=== PATIENT | female | born 2005 | race African-American/Black ===

== ENCOUNTER 2024-09-22 00:47 | Emergency (ER) | payer OTHER ==
[~2024-09-22] VITALS: Ht 167.6 cm; Wt 74.0 kg
--- NOTE | 2024-09-22 03:15 | ED.PDOC ---
Psychiatric HPI Comments A 19 year old female presents to the ED with a chief complaint of hallucinations onset yesterday. Patient states she has been hearing voices as well as experiencing suicidal ideation. Patient has a past medical history of Schizophrenia, is on medication, does not see a Psychiatrist, gets her medication from [facility] in [place]. Patient states her mother dropped her off at ED due to her symptoms. No other symptoms or modifying factors present at this time. Chief Complaint: Hallucinations Time Seen by MD: 03:07 Mode of Arrival: Ambulatory Timing: Hours Duration: Since onset Prehospital treatment: None Presents with: Suicidal Ideation, Other (Hallucinations) History of: Schizophrenia Quality: Hallucinations Associated signs and symptoms: Hallucinations Past Medical History PAST MEDICAL HISTORY: Schizophrenia Surgical History: Denies all surgeries ASSURANCE SENIOR History: No Pertinent ASSURANCE SENIOR History Family History Family History: Reviewed,noncontributory to illness, No family hx of Cancer, No family hx of DM, No family hx of Heart brayden, No family hx of HTN, No family hx ofKidney brayden, No family hx of Liver brayden, No family hx of Lung brayden, No family hx of Stroke Social History Smoker: Non-Smoker Alcohol: Denies ETOH Use Drugs: Denies Drug Use Lives In: Home Constitutional: denies: chills, diaphoresis, fatigue, fever, malaise, sweats, weakness, others EENTM: denies: blurred vision, double vision, ear bleeding, ear discharge, ear drainage, ear pain, ear ringing, eye pain, eye redness, hearing loss, mouth pain, mouth swelling, nasal discharge, nose bleeding, nose congestion, nose pain, photophobia, tearing, throat pain, throat swelling, voice changes, others Respiratory: denies: cough, hemoptysis, orthopnea, SOB at rest, shortness of breath, SOB with excertion, stridor, wheezing, others Cardiovascular: denies: chest pain, dizzy spells, diaphoresis, Dyspnea on exertion, edema, irregular heart beat, left arm pain, lightheadedness, palpitations, PND, syncope, others Gastrointestinal: denies: abdomen distended, abdominal pain, blood streaked bowels, constipated, diarrhea, dysphagia, difficulty swallowing, hematemesis, melena, nausea, poor appetite, poor fluid intake, rectal bleeding, rectal pain, vomiting, others Genitourinary: denies: abnormal vagina bleeding, burning, dyspareunia, dysuria, flank pain, frequency, hematuria, incontinence, pain, , vagina discharge, urgency, others Neurological: denies: dizziness, fainting, headache, left sided numbness, left sided weakness, numbness, paresthesia, pre-existing deficit, right sided numbness, right sided weakness, seizure, speech problems, tingling, tremors, weakness, others Musculoskeletal: denies: back pain, gout, joint pain, joint swelling, muscle pain, muscle stiffness, neck pain, others Integumetry: denies: bruises, change in color, change in hair/nails, dryness, laceration, lesions, lumps, rash, wounds, others Allergic/Immunocompromised: denies: Difficulty Healing, Frequent Infections, Hives, Itching, others Hematologic/Lymphatic: denies: anemia, blood clots, easy bleeding, easy bruising, swollen glands, others Endocrine: denies: excessive hunger, excessive sweating, excessive thirst, excessive urination, flushing, intolerance to cold, intolerance to heat, unexplained weight gain, unexplained weight loss, others Psychiatric: reports: schizophrenia, suicidal; denies: anxiety, bipolar disorder, depression, hopeless, panic disorder, sleepless, others All Other Systems: Reviewed and Negative Physical Exam General Appearance: Cachectic, Normal HEENT: Normal ENT Inspection, Pharynx Normal, TMs Normal Neck: Full Range of Motion, Non-Tender, Normal, Normal Inspection Respiratory: Chest Non-Tender, Lungs Clear, No Accessory Muscle Use, No Respiratory Distress, Normal Breath Sounds Cardiovascular: No Edema, No JVD, No Murmur, No Gallop, Normal Peripheral Pulses, Regular Rate/Rhythm Breast Exam: Deferred Gastrointestinal: No Organomegaly, Non Tender, No Pulsatile Mass, Normal Bowel Sounds, Soft Genitalia: Deferred Pelvic: Deferred Rectal: Deferred Extremities: No calf tenderness, Normal capillary refill, Normal inspection, Normal range of motion, Non-tender, No pedal edema Musculoskeletal : Apperance: Normal Neurologic: Alert, music internship II-XII nml as Tested, No Motor Deficits, Normal Affect, Normal Mood, No Sensory Deficits Cerebellar Function: Normal Reflexes: Normal Skin: Dry, Normal Color, Warm Lymphatic: No Adenopathy Was a procedure done? Was a procedure done?: No Psych Differential Dx Psych. Differential Dx: Anxiety, Bipolar Disorder, Depression, Schizoprenia, Suicidal Suicidal Differential Dx: Anxiety, Depression, Schizoprenia X-Ray, Labs, Meds, VS Vital Signs Date Time Temp Pulse Resp B/P (MAP) Pulse Ox O2 Delivery O2 Flow Rate FiO2 09/22/24 01:07 98.4 89 20 120/69 (86) 97 Lab Test 09/22/24 03:07 09/22/24 01:08 Range/Units White Blood Count 5.6 4.4-10.8 10^3/uL Red Blood Count 4.50 4.0-5.20 10^6/uL Hemoglobin 13.5 12.2-16.2 g/dL Hematocrit 39.9 36.0-46.0 % Mean Corpuscular Volume 88.7 80.0-100.0 fL Mean Corpuscular Hemoglobin 30.0 28.0-32.0 pg Mean Corpuscular Hemoglobin Concent 33.8 32.0-36.0 g/dL Red Cell Distribution Width 13.4 11.8-14.3 % Platelet Count 308 140-450 10^3/uL Mean Platelet Volume 7.5 6.9-10.8 fL Neutrophils (%) (Auto) 57.3 37.0-80.0 % Lymphocytes (%) (Auto) 34.2 10.0-50.0 % Monocytes (%) (Auto) 7.2 0.0-12.0 % Eosinophils (%) (Auto) 0.4 0.0-7.0 % Basophils (%) (Auto) 0.9 0.0-2.0 % Neutrophils # (Auto) 3.2 1.6-8.6 10 ^3/uL Lymphocytes # (Auto) 1.9 0.4-5.4 10 ^3/uL Monocytes # (Auto) 0.4 0-1.3 10 ^3/uL Eosinophils # (Auto) 0 0-0.8 10 ^3/uL Basophils # (Auto) 0 0-0.2 10 ^3/uL Nucleated Red Blood Cells 0.1 % Sodium Level 142 136-145 mmol/L Potassium Level 3.9 3.5-5.1 mmol/L Chloride Level 107 98-107 mmol/L Carbon Dioxide Level 26 20-31 mmol/L Anion Gap 9 5-15 Blood Urea Nitrogen 13 9-23 mg/dL Creatinine 0.87 0.550-1.02 mg/dL Glomerular Filtration Rate Calc 98 >90 mL/min BUN/Creatinine Ratio 14.9 10.0-20.0 Serum Glucose 106 74-106 mg/dL Calcium Level 10.4 8.7-10.4 mg/dL Total Bilirubin 0.3 0.2-1.0 mg/dL Aspartate Amino Transferase (AST) 13 13-40 U/L Alanine Aminotransferase (ALT) 17 7-40 U/L Alkaline Phosphatase 64 46-116 U/L Total Protein 8.1 5.7-8.2 g/dL Albumin 5.1 H 3.2-4.8 g/dL Salicylates Level < 3.0 -30 mg/dL Acetaminophen Level < 2.0 L 10.0-20.0 UG/ML Plasma/Serum Blood Alcohol < 3.0 <10 mg/dL Urine Color Yellow Yellow Urine Clarity Turbid H Clear Urine pH 6.0 5.0-9.0 Urine Specific [place] 1.032 1.001-1.035 Urine Protein Trace H Negative Urine Ketones Trace Negative Urine Blood Negative Negative /uL Urine Nitrite Negative Negative Urine Bilirubin Negative Negative Urine Urobilinogen 3 H Negative mg/dL Urine Leukocyte Esterase Negative Negative /uL Urine RBC 4 0 - 4 /hpf Urine WBC 3 0 - 5 /hpf Urine Squamous Epithelial Cells Mod <5 /hpf Urine Bacteria None seen None Seen /hpf Urine Mucus Few None Seen Urine Glucose Normal Normal mg/dL Urine Opiates Screen Neg NEGATIVE Urine Fentanyl Screen Neg NEGATIVE Urine Barbiturates Screen Neg NEGATIVE Urine Phencyclidine Screen Neg NEGATIVE Urine Amphetamines Screen Neg NEGATIVE Urine Benzodiazepines Screen Neg NEGATIVE Urine Cocaine Screen Neg NEGATIVE Urine Cannabinoids Screen Neg NEGATIVE CBC and CMP were normal. Salicylate and acetaminophen levels are normal. Drug screen and alcohol levels are negative. Psychiatric tele consult has been ordered. Time of 1ST Reevaluation: 03:37 Reevaluation 1ST: Unchanged Patient Education/Counseling: Diagnosis, Treatment, Prognosis Family Education/Counseling: No Family Present Departure 1 Departure Time of Disposition: 04:57 Impression: Primary Impression: Suicide ideation Additional Impression: Depression Qualified Codes: F33.2 - Major depressive disorder, recurrent severe without psychotic features Disposition: 30 STILL A PATIENT Condition: Guarded Critical Care Note Critical Care Time?: No Stability Stability form required: No I personally scribed for SERG CHAPMAN MD ([email or web address]) on 09/22/24 at 03:15. Electronically submitted by Rox James ([email or web address]). SERG CHAPMAN MD Sep 22, 2024 03:15
[2024-09-22 03:23] LABS: Basophils # (auto) 0 10 ^3/uL (0-0.2); Basophils % (auto) 0.9 % (0.0-2.0); Eosinophils # (auto) 0 10 ^3/uL (0-0.8); Eosinophils % (auto) 0.4 % (0.0-7.0); Hematocrit 39.9 % (36.0-46.0); Hemoglobin 13.5 g/dL (12.2-16.2); Lymphocytes # (auto) 1.9 10 ^3/uL (0.4-5.4); Lymphocytes % (auto) 34.2 % (10.0-50.0); Mean Corpuscular Hgb Conc. 33.8 g/dL (32.0-36.0); Mean Corpuscular Volume 88.7 fL (80.0-100.0); Monocytes # (auto) 0.4 10 ^3/uL (0-1.3); Monocytes % (auto) 7.2 % (0.0-12.0); Neutrophils # (auto) 3.2 10 ^3/uL (1.6-8.6); Neutrophils % (auto) 57.3 % (37.0-80.0); Nucleated Red Blood Cells % 0.1 %; Platelet Count (auto) 308 10^3/uL (140-450); Red Cell Distribution Width 13.4 % (11.8-14.3); White Blood Cell 5.6 10^3/uL (4.4-10.8)
[2024-09-22 03:31] LABS: Urine Bacteria None Seen /hpf (None Seen)
[2024-09-22 03:41] LABS: Alanine Aminotransferase 17 U/L (7-40); Albumin 5.1 g/dL (3.2-4.8); Alkaline Phosphatase 64 U/L (46-116); Anion Gap 9 (5-15); Aspartate Aminotransferase 13 U/L (13-40); BUN/Creatinine Ratio 14.9 (10.0-20.0); Bilirubin, Total 0.3 mg/dL (0.2-1.0); Blood Alcohol < 3.0 mg/dL (<10); Blood Urea Nitrogen 13 mg/dL (9-23); Calcium 10.4 mg/dL (8.7-10.4); Carbon Dioxide 26 mmol/L (20-31); Chloride 107 mmol/L (98-107); Glucose 106 mg/dL (74-106); Potassium 3.9 mmol/L (3.5-5.1); Sodium 142 mmol/L (136-145); Total Protein 8.1 g/dL (5.7-8.2)
[2024-09-22 03:42] LABS: Acetaminophen < 2.0 UG/ML (10.0-20.0)
[2024-09-22 03:49] LABS: Salicylate < 3.0 mg/dL (-30)
[2024-09-22 03:52] LABS: Amphetamine Screen, Urine Neg (NEGATIVE); Barbiturate Scree,Urine Neg (NEGATIVE); Benzodiazephine Screen, Urine Neg (NEGATIVE); Cocaine Screen, Urine Neg (NEGATIVE); Opiate Scree,Urine Neg (NEGATIVE); Phencyclidine Screen, Urine Neg (NEGATIVE)
[2024-09-22 03:53] LABS: Cannabinoid Screen, Urine Neg (NEGATIVE)
[2024-09-22 04:20] LABS: Urine Blood Negative /uL (Negative); Urine Clarity Turbid (Clear); Urine Color Yellow (Yellow); Urine Mucus FEW (None Seen); Urine Protein, UAD TRACE (Negative); Urine Specific Gravity 1.032 (1.001-1.035); Urine Squamous Epithelial Cell MOD /hpf (<5); Urine Urobilinogen 3 mg/dL (Negative); Urine WBC 3 /hpf (0 - 5)
--- NOTE | 2024-09-22 11:01 | DVHINCON2 ---
Date of Service if different f: Sep 22, 2024 Consultation ([facility]) Consulting Physician: RAJI ALLRED MD Labs Laboratory Tests Test 09/22/24 01:08 09/22/24 03:07 Urine Color Yellow (Yellow) Urine Clarity Turbid (Clear) Urine pH 6.0 (5.0-9.0) Urine Specific [place] 1.032 (1.001-1.035) Urine Protein Trace (Negative) Urine Ketones Trace (Negative) Urine Blood Negative /uL (Negative) Urine Nitrite Negative (Negative) Urine Bilirubin Negative (Negative) Urine Urobilinogen 3 mg/dL (Negative) Urine Leukocyte Esterase Negative /uL (Negative) Urine RBC 4 /hpf (0 - 4) Urine WBC 3 /hpf (0 - 5) Urine Squamous Epithelial Cells Mod /hpf (<5) Urine Bacteria None seen /hpf (None Seen) Urine Mucus Few (None Seen) Urine Glucose Normal mg/dL (Normal) Urine Opiates Screen Neg (NEGATIVE) Urine Fentanyl Screen Neg (NEGATIVE) Urine Barbiturates Screen Neg (NEGATIVE) Urine Phencyclidine Screen Neg (NEGATIVE) Urine Amphetamines Screen Neg (NEGATIVE) Urine Benzodiazepines Screen Neg (NEGATIVE) Urine Cocaine Screen Neg (NEGATIVE) Urine Cannabinoids Screen Neg (NEGATIVE) White Blood Count 5.6 10^3/uL (4.4-10.8) Red Blood Count 4.50 10^6/uL (4.0-5.20) Hemoglobin 13.5 g/dL (12.2-16.2) Hematocrit 39.9 % (36.0-46.0) Mean Corpuscular Volume 88.7 fL (80.0-100.0) Mean Corpuscular Hemoglobin 30.0 pg (28.0-32.0) Mean Corpuscular Hemoglobin Concent 33.8 g/dL (32.0-36.0) Red Cell Distribution Width 13.4 % (11.8-14.3) Platelet Count 308 10^3/uL (140-450) Mean Platelet Volume 7.5 fL (6.9-10.8) Neutrophils (%) (Auto) 57.3 % (37.0-80.0) Lymphocytes (%) (Auto) 34.2 % (10.0-50.0) Monocytes (%) (Auto) 7.2 % (0.0-12.0) Eosinophils (%) (Auto) 0.4 % (0.0-7.0) Basophils (%) (Auto) 0.9 % (0.0-2.0) Neutrophils # (Auto) 3.2 10 ^3/uL (1.6-8.6) Lymphocytes # (Auto) 1.9 10 ^3/uL (0.4-5.4) Monocytes # (Auto) 0.4 10 ^3/uL (0-1.3) Eosinophils # (Auto) 0 10 ^3/uL (0-0.8) Basophils # (Auto) 0 10 ^3/uL (0-0.2) Nucleated Red Blood Cells 0.1 % Sodium Level 142 mmol/L (136-145) Potassium Level 3.9 mmol/L (3.5-5.1) Chloride Level 107 mmol/L (98-107) Carbon Dioxide Level 26 mmol/L (20-31) Anion Gap 9 (5-15) Blood Urea Nitrogen 13 mg/dL (9-23) Creatinine 0.87 mg/dL (0.550-1.02) Glomerular Filtration Rate Calc 98 mL/min (>90) BUN/Creatinine Ratio 14.9 (10.0-20.0) Serum Glucose 106 mg/dL (74-106) Calcium Level 10.4 mg/dL (8.7-10.4) Total Bilirubin 0.3 mg/dL (0.2-1.0) Aspartate Amino Transf (AST/SGOT) 13 U/L (13-40) Alanine Aminotransferase (ALT/SGPT) 17 U/L (7-40) Alkaline Phosphatase 64 U/L (46-116) Total Protein 8.1 g/dL (5.7-8.2) Albumin 5.1 g/dL (3.2-4.8) Beta HCG, Quantitative 1.4 mIU/mL (1.5-4.2) Salicylates Level < 3.0 mg/dL (-30) Acetaminophen Level < 2.0 UG/ML (10.0-20.0) Plasma/Serum Blood Alcohol < 3.0 mg/dL (<10) Appetite: Fair Appearance: Stated age, Groomed Psychomotor activity: Agitated Behavioral: [place], Impulsive Eye contact: Limited Speech: WNL Affect: Irritable, Guarded Mood: Elevated, Irritable Thought processes: Linear/Goal-directed Thought content: Hallucinations (auditory) Suicidal ideations: Absent Homicidal ideations: Absent Orientation: Person, Place, Time, Situation Memory intact: Recent Intellect: Average Abstractability: WNL Concentration: Adequate Attention: Limited Judgement: Marginal Insight: Fair Vitals Vital Signs Date Time Temp Pulse Resp B/P (MAP) Pulse Ox O2 Delivery O2 Flow Rate FiO2 09/22/24 08:37 97.9 79 20 119/74 (89) 98 97.9 09/22/24 08:37 Room Air Treatment plan discussed: With staff Medication adjusted: Yes Diagnosis: hx of schizophrenia Plan : this is a 19-year-old female with hx of schizophrenia reporting increasing command hallucinations and paranoia, lacks a mental health provider Recommend 5150hold and transfer to psychiatric facility for stabilization and treatment d/c Abilify. Start Risperdal 1mg po qam, 2mg po qhs History of Present Illness Reason for Consult : hallucinations HPI : This is a 19-year-old female with hx of of schizophrenia presents to ED reporting hallucinations. Patient is evaluated via telepsychiatry. She reports visual hallucinations which are blurry and command auditory hallucinations which tell her to harm herself. She is hearing conversations of people. She repeats "I don't know" when asked to elaborate or provide more details. She becomes irritable, saying I'm tired of this. She is also holding her stomach saying " I might be " and reporting stomach pain. She believes people are after her and are responsible for this. She is having suicidal ideation but denies any plans. She denies homicidal ideations. She reports hallucination have been going on for a while and mom does not want her in the house and wants her to go get help. Mom dropped her off to ED. She sometimes has trouble sleeping. She denies feels depressed. She has normal appetite. She is sometimes smiling to self, preoccupied, appears to respond to unseen stimuli. Past Psychiatric History : She reports hx of schizophrenia and prescribed Abilify 25mg x1 year and reports compliance but it does not seem to work and hallucinations are worse. Discussed that there is not a 25mg tablet, maybe a 20mg and 5mg, but she denies. She does not have a psychiatrist or therapist. She received prescription from crisis center. She does have prior psych admissions, she could not provide further details. She denies past suicide attempts. Past Medical History : She denies Social History : She lives with mother. She does not have children. She is unemployed. She reports vaping nicotine only. Denies substance use. Her toxicolo gy is negative for substances. FANI DE LA VEGA DNP Sep 22, 2024 11:01
[2024-09-23] VITALS: RESP 14; O2SAT 96
[2024-09-23 19:30] VITALS: PULSE 97; RESP 19; O2SAT 97
[2024-09-24] MEDS: risperiDONE 1 MG TAB PO ONE (01:36)
[2024-09-24 06:42] VITALS: BP 103/65; RESP 12; TEMP 97.6; O2SAT 100
--- NOTE | 2024-09-24 06:57 | ED.PDOC ---
Departure 1 Departure Time of Disposition: 06:57 (Patient is resting comfortably. Patient accepted to [facility] Impression: Primary Impression: Suicide ideation Additional Impression: Depression Qualified Codes: F33.2 - Major depressive disorder, recurrent severe without psychotic features Dis[facility] Condition: Guarded LINA MOORE MD Sep 24, 2024 06:57
[2024-09-24] MEDS ORDERED: risperiDONE 1 MG TAB PO ONE (07:00)
== END 2024-09-22 07:37 ==
LOC: ER 00:47
DX: R45.851 Suicidal ideations (principal); R10.2 Pelvic and perineal pain; F20.9 Schizophrenia, unspecified; F17.290 Nicotine dependence, other tobacco product, uncomplicated; F32.A Depression, unspecified; Z79.899 Other long term (current) drug therapy; Z20.822 Contact with and (suspected) exposure to COVID-19; Z32.02 Encounter for pregnancy test, result negative
CPT/HCPCS: 36415; 80053; 80307; 80320; 80329; 81001; 81025; 84702; 85025

== ENCOUNTER 2024-12-13 01:41 | Emergency (ER) | payer OTHER ==
[~2024-12-13] VITALS: Ht 170.2 cm; Wt 68.4 kg
--- NOTE | 2024-12-13 02:03 | ED.PDOC ---
Psychiatric HPI Comments 19-year-old female who came to emergency room via EMS for mental health issues. Per EMS patient was picked up by the crisis center. Does have history of schizophrenia, anxiety and depression and has poor compliance to her medications. States she has been feeling suicidal recently, with has no plans to, and she has been having auditory hallucinations as well. Denies being homicidal. Chief Complaint: Mental Health Time Seen by MD: 02:02 Reviewed Notes: Meter And Service Line Inspector Notes Information Source: Patient, Emergency Med Personnel Mode of Arrival: EMS Severity: Unable to Care for Self, Unable to Control Self Severity of Pain: Moderate Severity of Mental Status: Moderate Severity of Symptoms: Moderate Timing: Days Duration: Intermittent Prehospital treatment: None Presents with: Depression, Anxiety, Unclear Thinking, Bizarre Behavior, Suicidal Ideation Circumstance: Causing a Disturbance Current substance abuse: None Stressors: Relationships History of: Depression, Anxiety, Schizophrenia, Suicidal Attempt Quality: Confusion, Hallucinations Associated signs and symptoms: Depression, Hopeless, Anxiety, Hallucinations, Confusion Past Medical History PAST MEDICAL HISTORY: Anxiety, Depression, Schizophrenia Past Medical History (Other): Suicide ideations Surgical History: Denies all surgeries COMPUTER FIELD TECHNICIAN History: No Pertinent COMPUTER FIELD TECHNICIAN History Family History Family History: Reviewed,noncontributory to illness, No family hx of Cancer, No family hx of DM, No family hx of Heart brayden, No family hx of HTN, No family hx ofKidney brayden, No family hx of Liver brayden, No family hx of Lung brayden, No family hx of Stroke Social History Smoker: Non-Smoker Alcohol: Denies ETOH Use Drugs: Denies Drug Use Lives In: Home Constitutional: denies: chills, diaphoresis, fatigue, fever, malaise, sweats, weakness, others EENTM: denies: blurred vision, double vision, ear bleeding, ear discharge, ear drainage, ear pain, ear ringing, eye pain, eye redness, hearing loss, mouth pain, mouth swelling, nasal discharge, nose bleeding, nose congestion, nose pain, photophobia, tearing, throat pain, throat swelling, voice changes, others Respiratory: denies: cough, hemoptysis, orthopnea, SOB at rest, shortness of breath, SOB with excertion, stridor, wheezing, others Gastrointestinal: denies: abdomen distended, abdominal pain, blood streaked bowels, constipated, diarrhea, dysphagia, difficulty swallowing, hematemesis, melena, nausea, poor appetite, poor fluid intake, rectal bleeding, rectal pain, vomiting, others Genitourinary: denies: abnormal vagina bleeding, burning, dyspareunia, dysuria, flank pain, frequency, hematuria, incontinence, pain, , vagina discharge, urgency, others Neurological: denies: dizziness, fainting, headache, left sided numbness, left sided weakness, numbness, paresthesia, pre-existing deficit, right sided numbness, right sided weakness, seizure, speech problems, tingling, tremors, weakness, others Musculoskeletal: denies: back pain, gout, joint pain, joint swelling, muscle pain, muscle stiffness, neck pain, others Integumetry: denies: bruises, change in color, change in hair/nails, dryness, laceration, lesions, lumps, rash, wounds, others Hematologic/Lymphatic: denies: anemia, blood clots, easy bleeding, easy bruising, swollen glands, others Endocrine: denies: excessive hunger, excessive sweating, excessive thirst, excessive urination, flushing, intolerance to cold, intolerance to heat, unexplained weight gain, unexplained weight loss, others Psychiatric: reports: anxiety, depression, schizophrenia, suicidal; denies: bipolar disorder, hopeless, panic disorder, sleepless, others Physical Exam General Appearance: No Apparent Distress, Normal HEENT: Normal ENT Inspection, Pharynx Normal, TMs Normal Neck: Full Range of Motion, Non-Tender, Normal, Normal Inspection Respiratory: Chest Non-Tender, Lungs Clear, No Accessory Muscle Use, No Respiratory Distress, Normal Breath Sounds Cardiovascular: No Edema, No JVD, No Murmur, No Gallop, Normal Peripheral Pulses, Regular Rate/Rhythm Breast Exam: Deferred Gastrointestinal: No Organomegaly, Non Tender, No Pulsatile Mass, Normal Bowel Sounds, Soft Genitalia: Deferred Pelvic: Deferred Rectal: Deferred Extremities: No calf tenderness, Normal capillary refill, Normal inspection, Normal range of motion, Non-tender, No pedal edema Musculoskeletal : Apperance: Normal Neurologic: Alert, play therapist II-XII nml as Tested, No Motor Deficits, Normal Affect, Normal Mood, No Sensory Deficits Cerebellar Function: Normal Reflexes: Normal Skin: Dry, Normal Color, Warm Lymphatic: No Adenopathy Was a procedure done? Was a procedure done?: No Psych Differential Dx Psych. Differential Dx: Anxiety, Bipolar Disorder, Depression, Schizoprenia, Suicidal OD Differential Dx: Hallucinations Suicidal Differential Dx: Anxiety, Depression, Schizoprenia X-Ray, Labs, Meds, VS Vital Signs Date Time Temp Pulse Resp B/P (MAP) Pulse Ox O2 Delivery O2 Flow Rate FiO2 12/13/24 01:47 98.4 89 16 109/73 (85) Lab Test 12/13/24 02:03 Range/Units White Blood Count 4.7 4.4-10.8 10^3/uL Red Blood Count 4.36 4.0-5.20 10^6/uL Hemoglobin 12.8 12.2-16.2 g/dL Hematocrit 38.2 36.0-46.0 % Mean Corpuscular Volume 87.5 80.0-100.0 fL Mean Corpuscular Hemoglobin 29.3 28.0-32.0 pg Mean Corpuscular Hemoglobin Concent 33.5 32.0-36.0 g/dL Red Cell Distribution Width 14.0 11.8-14.3 % Platelet Count 241 140-450 10^3/uL Mean Platelet Volume 8.1 6.9-10.8 fL Neutrophils (%) (Auto) 37.0-80.0 % Lymphocytes (%) (Auto) 10.0-50.0 % Monocytes (%) (Auto) 0.0-12.0 % Basophils (%) (Auto) 0.0-2.0 % Neutrophils # (Auto) 1.6-8.6 10 ^3/uL Lymphocytes # (Auto) 0.4-5.4 10 ^3/uL Monocytes # (Auto) 0-1.3 10 ^3/uL Differential Total Cells Counted 100.0 100 Neutrophils % (Manual) 39 37.0-80.0 Band Neutrophils % (Manual) 0 Lymphocytes % (Manual) 45 10.0-50.0 Monocytes % (Manual) 13 H 0-12 Eosinophils % (Manual) 0 0-7 Basophils % (Manual) 0 0.0-2.0 Metamyelocytes % (manual) 0 Myelocytes % (Manual) 0 Promyelocytes % (Manual) 0 Blast Cells % (Manual) 0 Reactive Lymphocytes 3 Platelet Estimate Adequate Red Blood Cell Morphology Normal Sodium Level 141 136-145 mmol/L Potassium Level 3.9 3.5-5.1 mmol/L Chloride Level 107 98-107 mmol/L Carbon Dioxide Level 26 20-31 mmol/L Anion Gap 8 5-15 Blood Urea Nitrogen 10 9-23 mg/dL Creatinine 0.78 0.550-1.02 mg/dL Glomerular Filtration Rate Calc 111 >90 mL/min BUN/Creatinine Ratio 12.8 10.0-20.0 Serum Glucose 96 74-106 mg/dL Calcium Level 9.7 8.7-10.4 mg/dL Total Bilirubin 0.3 0.2-1.0 mg/dL Aspartate Amino Transferase (AST) 39 13-40 U/L Alanine Aminotransferase (ALT) 51 H 7-40 U/L Alkaline Phosphatase 70 46-116 U/L Total Protein 7.3 5.7-8.2 g/dL Albumin 4.8 3.2-4.8 g/dL Salicylates Level < 3.0 -30 mg/dL Acetaminophen Level < 2.0 L 10.0-20.0 UG/ML Plasma/Serum Blood Alcohol < 3.0 <10 mg/dL CBC and CMP were normal. Tylenol and salicylate levels are normal. Alcohol level is normal. UDS is pending. The patient was placed in ED ops until she is medically cleared. Time of 1ST Reevaluation: 01:57 Reevaluation 1ST: Unchanged Patient Education/Counseling: Diagnosis, Treatment Family Education/Counseling: No Family Present Departure 1 Departure Time of Disposition: 04:06 Impression: Primary Impression: Suicide ideation Additional Impressions: Depression Qualified Codes: F33.1 - Major depressive disorder, recurrent, moderate Anxiety Disposition: 30 STILL A PATIENT Condition: Guarded Discharged With: Self Critical Care Note Critical Care Time?: No Stability Stability form required: No Heart Score Heart Score: Heart Score Response (Comments) Value History N/A 0 EKG N/A 0 Age N/A 0 Risk Factors N/A 0 Troponin N/A 0 Total 0 I personally scribed for SERG CHAPMAN MD ([email or web address]) on 12/13/24 at 02:03. Electronically submitted by Sameer Thornton ([email or web address]). SERG CHAPMAN MD Dec 13, 2024 02:03
[2024-12-13 02:31] LABS: Alkaline Phosphatase 70 U/L (46-116); Anion Gap 8 (5-15); Aspartate Aminotransferase 39 U/L (13-40); BUN/Creatinine Ratio 12.8 (10.0-20.0); Blood Urea Nitrogen 10 mg/dL (9-23); Calcium 9.7 mg/dL (8.7-10.4); Carbon Dioxide 26 mmol/L (20-31); Glucose 96 mg/dL (74-106); Potassium 3.9 mmol/L (3.5-5.1); Sodium 141 mmol/L (136-145)
[2024-12-13 02:32] LABS: Bilirubin, Total 0.3 mg/dL (0.2-1.0); Total Protein 7.3 g/dL (5.7-8.2)
[2024-12-13 02:36] LABS: Acetaminophen < 2.0 UG/ML (10.0-20.0); Alanine Aminotransferase 51 U/L (7-40); Albumin 4.8 g/dL (3.2-4.8); Blood Alcohol < 3.0 mg/dL (<10); Chloride 107 mmol/L (98-107); Salicylate < 3.0 mg/dL (-30)
[2024-12-13 02:38] LABS: Hematocrit 38.2 % (36.0-46.0); Hemoglobin 12.8 g/dL (12.2-16.2); Mean Corpuscular Hemoglobin 29.3 pg (28.0-32.0); Mean Corpuscular Hgb Conc. 33.5 g/dL (32.0-36.0); Mean Corpuscular Volume 87.5 fL (80.0-100.0); Platelet Count (auto) 241 10^3/uL (140-450); Red Blood Cells 4.36 10^6/uL (4.0-5.20); White Blood Cell 4.7 10^3/uL (4.4-10.8)
[2024-12-13 02:40] LABS: Band Neutrophils % (manual) 0; Basophils % (manual) 0 (0.0-2.0); Blast Cells 0; Eosinophils % (manual) 0 (0-7); Metamyelocytes % 0; Myelocytes % 0; Promyelocytes % 0
[2024-12-13 03:05] LABS: Lymphocytes % (manual) 45 (10.0-50.0); Monocytes % (manual) 13 (0-12); Reactive Lymphocytes 3
[2024-12-13 03:06] LABS: Platelet Estimate Adequate; RBC Morphology Normal
[2024-12-13 10:00] VITALS: PULSE 90; RESP 16; O2SAT 99
[2024-12-13 10:50] LABS: Cocaine Screen, Urine Neg (NEGATIVE)
[2024-12-13 10:51] LABS: Cannabinoid Screen, Urine Pos (NEGATIVE)
[2024-12-13 10:52] LABS: Amphetamine Screen, Urine Pos (NEGATIVE); Barbiturate Scree,Urine Neg (NEGATIVE); Benzodiazephine Screen, Urine Neg (NEGATIVE); Opiate Scree,Urine Neg (NEGATIVE); Phencyclidine Screen, Urine Neg (NEGATIVE)
[2024-12-13 11:28] LABS: Urine Bacteria FEW /hpf (None Seen); Urine Blood Negative /uL (Negative); Urine Clarity Turbid (Clear); Urine Color Yellow (Yellow); Urine Mucus MODERATE (None Seen); Urine Protein, UAD TRACE (Negative); Urine Specific Gravity 1.029 (1.001-1.035); Urine Squamous Epithelial Cell FEW /hpf (<5); Urine Urobilinogen 3 mg/dL (Negative); Urine WBC 10 /HPF (0-5)
[2024-12-13] MEDS ORDERED: cefTRIAXone SOD 1,000 MG VL IM ONE (11:45)
[2024-12-13] MEDS: hydrOXYzine 25 MG TAB or CAP PO ONE (12:00)
[2024-12-13] MEDS: cefTRIAXone 1GM/50ML D5W 50 ML IV ONE (12:12)
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
[2024-12-13 20:00] VITALS: RESP 16; O2SAT 99
[2024-12-14 08:38] VITALS: O2SAT 99
[2024-12-14] MEDS: NICOTINE 14 MG/24HR TOPICAL PATCH TD ONE (20:48)
[2024-12-15 00:45] VITALS: BP 125/67; PULSE 93; RESP 16; TEMP 99.1; O2SAT 98
== END 2024-12-15 00:55 ==
LOC: EDUNIT# 01:41 → EDBD 01:41 → ER 01:41
DX: R45.851 Suicidal ideations (principal); F32.A Depression, unspecified; F41.9 Anxiety disorder, unspecified; F20.9 Schizophrenia, unspecified
CPT/HCPCS: 36415; 80053; 80307; 80320; 80329; 81001; 81025; 85007; 85027; 96365; 99285; J0696